=== PATIENT | female | born 1945 | race Caucasian/White ===

== ENCOUNTER 2019-07-30 14:36 | Inpatient (IN) | payer MEDICARE, OTHER ==
[~2019-07-30] VITALS: Ht 162.6 cm; Wt 77.1 kg
[2019-07-30 20:00] VITALS: BP 137/62
[2019-07-30] MEDS ORDERED: Z GUARD REMEDY PASTE 57 GM TUBE TOP PRN (21:45)
[2019-07-30] MEDS ORDERED: MIRALAX 17 GM POWD.PACK PO PRN (22:00)
[2019-07-31] MEDS: HYDROCODONE/APAP 5-325MG TABLET PO PRN ×4 (01:48→23:22)
[2019-07-31 04:00] VITALS: BP 123/58
[2019-07-31 09:10] VITALS: BP 127/53
[2019-07-31] MEDS: ACETAMINOPHEN 325 MG TABLET PO PRN (12:54)
[2019-07-31] MEDS ORDERED: BISACODYL 5 MG TABLET.DR PO PRN (14:00)
[2019-07-31] MEDS ORDERED: ACETAMINOPHEN/CODEINE 300-30 MG TABLET PO PRN (14:00)
[2019-07-31] MEDS ORDERED: DEXTROSE 50% 50 ML DISP.SYRIN IV PRN (14:15)
[2019-07-31 16:01] VITALS: BP 122/55
[2019-07-31] MEDS: BLOOD SUGAR DIAGNOSTIC 1 EACH STRIP VI SCH ×2 (16:30→20:34)
[2019-07-31] MEDS: OLOPATADINE 0.1% OPHT DROP 5 ML BOTTLE EACHEYE SCH (17:34)
[2019-07-31] MEDS: RESTASIS EACHEYE SCH (17:34)
[2019-07-31] MEDS: MIDODRINE HCL 5 MG TABLET PO SCH (17:39)
[2019-07-31] MEDS: LIPASE/PROTEASE/AMYLASE 4200 UNITS CAPSULE.DR PO SCH (17:41)
[2019-07-31 20:25] VITALS: BP 123/60
[2019-07-31] MEDS: DOCUSATE SODIUM 100 MG CAPSULE PO SCH (20:26)
[2019-07-31] MEDS: INSULIN REGULAR, HUMAN 300 UNITS/3 ML VIAL SQ PRN (20:32)
[2019-07-31] MEDS: ENOXAPARIN SODIUM 40 MG/0.4 ML DISP.SYRIN SQ SCH (20:32)
[2019-08-01 04:00] VITALS: BP 128/48
[2019-08-01] MEDS: BLOOD SUGAR DIAGNOSTIC 1 EACH STRIP VI SCH ×4 (06:32→20:55)
[2019-08-01 07:24] LABS: BASOPHILS % (AUTO) 0.5 % (0.0-2.0); EOSINOPHILS # (AUTO) 0.1 K/uL (0.0-0.7); EOSINOPHILS % (AUTO) 1.4 % (0.0-7.0); HEMATOCRIT 28.4 % (31.2-41.9); HEMOGLOBIN 9.8 g/dL (10.9-14.3); LYMPHOCYTES # (AUTO) 1.7 K/uL (20.0-40.0); LYMPHOCYTES % (AUTO) 18.8 % (20.5-51.5); MEAN CORPUSCULAR HEMOGLOBIN 31.8 uug (24.7-32.8); MEAN CORPUSCULAR HGB CONC 35 g/dL (32.3-35.6); MEAN CORPUSCULAR VOLUME 91.9 fL (75.5-95.3); MONOCYTES # (AUTO) 0.8 K/uL (2.0-10.0); NEUTROPHILS # (AUTO) 6.5 K/uL (1.8-8.9); NEUTROPHILS % (AUTO) 70.3 % (38.5-71.5); PLATELET COUNT (AUTO) 313 K/uL (179-408); RED BLOOD CELL COUNT(AUTO) 3.09 MIL/uL (3.63-4.92); WHITE BLOOD COUNT (AUTO) 9.3 K/uL (3.8-11.8)
[2019-08-01 07:36] LABS: CARBON DIOXIDE 24 mmol/L (21-32); CHLORIDE 100 mmol/L (98-107); CREATININE 0.2 mg/dL (0.6-1.3); GLUCOSE 143 mg/dL (74-106); MAGNESIUM 1.8 mg/dL (1.8-2.4); PHOSPHOROUS 2.8 mg/dL (2.5-4.9); POTASSIUM 3.2 mmol/L (3.5-5.1); UREA NITROGEN, BLOOD 8 mg/dL (7-18)
[2019-08-01 07:44] VITALS: BP 128/60
[2019-08-01] MEDS: CELECOXIB 200 MG CAPSULE PO SCH (08:39)
[2019-08-01] MEDS: LIPASE/PROTEASE/AMYLASE 4200 UNITS CAPSULE.DR PO SCH ×3 (08:40→17:51)
[2019-08-01] MEDS: MIDODRINE HCL 5 MG TABLET PO SCH ×3 (08:42→16:40)
[2019-08-01] MEDS: EZETIMIBE 10 MG TABLET PO SCH (08:43)
[2019-08-01] MEDS: RESTASIS EACHEYE SCH ×3 (08:43→16:41)
[2019-08-01] MEDS: OLOPATADINE 0.1% OPHT DROP 5 ML BOTTLE EACHEYE SCH ×2 (08:45→16:42)
[2019-08-01] MEDS: INSULIN REGULAR, HUMAN 300 UNIT/3 ML VIAL SQ PRN ×3 (08:50→16:44)
[2019-08-01] MEDS ORDERED: POTASSIUM CHLORIDE 20 MEQ TAB.PRT.SR PO ONE (12:00)
[2019-08-01] MEDS: HYDROCODONE/APAP 5-325MG TABLET PO PRN ×2 (12:03→20:47)
[2019-08-01 15:03] VITALS: BP 124/70
[2019-08-01] MEDS: ACETAMINOPHEN 325 MG TABLET PO PRN (16:47)
[2019-08-01] MEDS: DOCUSATE SODIUM 100 MG CAPSULE PO SCH (20:47)
[2019-08-01] MEDS: INSULIN REGULAR, HUMAN 300 UNITS/3 ML VIAL SQ PRN (20:51)
[2019-08-01] MEDS: ENOXAPARIN SODIUM 40 MG/0.4 ML DISP.SYRIN SQ SCH (20:52)
[2019-08-01 21:43] VITALS: BP 138/62
[2019-08-02] MEDS: ACETAMINOPHEN 325 MG TABLET PO PRN (04:37)
[2019-08-02 05:00] VITALS: BP 123/57
[2019-08-02] MEDS: BLOOD SUGAR DIAGNOSTIC 1 EACH STRIP VI SCH ×4 (06:31→21:05)
[2019-08-02 07:48] VITALS: BP 119/62
[2019-08-02] MEDS: INSULIN REGULAR, HUMAN 300 UNIT/3 ML VIAL SQ PRN ×2 (08:18→12:07)
[2019-08-02] MEDS: OLOPATADINE 0.1% OPHT DROP 5 ML BOTTLE EACHEYE SCH ×2 (08:19→17:29)
[2019-08-02] MEDS: RESTASIS EACHEYE SCH ×3 (08:19→17:30)
[2019-08-02] MEDS: LIPASE/PROTEASE/AMYLASE 4200 UNITS CAPSULE.DR PO SCH ×3 (08:20→18:24)
[2019-08-02] MEDS: CELECOXIB 200 MG CAPSULE PO SCH (08:20)
[2019-08-02] MEDS: EZETIMIBE 10 MG TABLET PO SCH (08:20)
[2019-08-02] MEDS: MIDODRINE HCL 5 MG TABLET PO SCH ×3 (08:20→17:35)
[2019-08-02] MEDS: HYDROCODONE/APAP 5-325MG TABLET PO PRN ×3 (08:35→22:05)
[2019-08-02 14:39] VITALS: BP 128/69
[2019-08-02 20:22] VITALS: BP 128/60
[2019-08-02] MEDS: DOCUSATE SODIUM 100 MG CAPSULE PO SCH ×2 (20:59→21:00)
[2019-08-02] MEDS: INSULIN REGULAR, HUMAN 300 UNITS/3 ML VIAL SQ PRN (21:09)
[2019-08-02] MEDS: ENOXAPARIN SODIUM 40 MG/0.4 ML DISP.SYRIN SQ SCH (21:10)
[2019-08-03] MEDS: HYDROCODONE/APAP 5-325MG TABLET PO PRN ×5 (02:17→20:45)
[2019-08-03 05:07] VITALS: BP 112/58
[2019-08-03] MEDS: BLOOD SUGAR DIAGNOSTIC 1 EACH STRIP VI SCH ×4 (06:36→20:50)
[2019-08-03] MEDS: LIPASE/PROTEASE/AMYLASE 4200 UNITS CAPSULE.DR PO SCH ×3 (08:03→17:02)
[2019-08-03] MEDS: CELECOXIB 200 MG CAPSULE PO SCH (08:03)
[2019-08-03] MEDS: MIDODRINE HCL 5 MG TABLET PO SCH ×3 (08:05→16:56)
[2019-08-03] MEDS: EZETIMIBE 10 MG TABLET PO SCH (08:05)
[2019-08-03] MEDS: RESTASIS EACHEYE SCH ×3 (08:13→17:06)
[2019-08-03] MEDS: INSULIN REGULAR, HUMAN 300 UNIT/3 ML VIAL SQ PRN ×3 (08:17→17:01)
[2019-08-03 08:21] VITALS: BP 121/64
[2019-08-03] MEDS: PROLENSA 0.07% EACHEYE SCH (08:21)
[2019-08-03] MEDS: OLOPATADINE 0.1% OPHT DROP 5 ML BOTTLE EACHEYE SCH ×2 (08:48→16:54)
[2019-08-03] MEDS ORDERED: hydrOXYzine HCL 25 MG TABLET PO PRN (13:45)
[2019-08-03 16:04] VITALS: BP 119/57
[2019-08-03] MEDS: ACETAMINOPHEN 325 MG TABLET PO PRN (16:55)
[2019-08-03] MEDS: HYDROCORTISONE 0.5% CREAM 28.35 GM TUBE TOP SCH (17:02)
[2019-08-03 20:05] VITALS: BP 109/60
[2019-08-03] MEDS: DOCUSATE SODIUM 100 MG CAPSULE PO SCH (20:44)
[2019-08-03] MEDS: ENOXAPARIN SODIUM 40 MG/0.4 ML DISP.SYRIN SQ SCH (20:46)
[2019-08-03] MEDS: INSULIN REGULAR, HUMAN 300 UNITS/3 ML VIAL SQ PRN (20:47)
[2019-08-04 05:30] VITALS: BP 113/61
[2019-08-04] MEDS: ACETAMINOPHEN 325 MG TABLET PO PRN (05:30)
[2019-08-04] MEDS: BLOOD SUGAR DIAGNOSTIC 1 EACH STRIP VI SCH ×4 (06:42→21:10)
[2019-08-04 08:06] VITALS: BP 130/54
[2019-08-04] MEDS: LIPASE/PROTEASE/AMYLASE 4200 UNITS CAPSULE.DR PO SCH ×3 (08:24→17:28)
[2019-08-04] MEDS: EZETIMIBE 10 MG TABLET PO SCH (08:24)
[2019-08-04] MEDS: CELECOXIB 200 MG CAPSULE PO SCH (08:24)
[2019-08-04] MEDS: HYDROCORTISONE 0.5% CREAM 28.35 GM TUBE TOP SCH ×2 (08:25→17:18)
[2019-08-04] MEDS: MIDODRINE HCL 5 MG TABLET PO SCH ×3 (08:26→17:26)
[2019-08-04] MEDS: OLOPATADINE 0.1% OPHT DROP 5 ML BOTTLE EACHEYE SCH ×2 (08:26→17:16)
[2019-08-04] MEDS: INSULIN REGULAR, HUMAN 300 UNIT/3 ML VIAL SQ PRN ×3 (08:29→17:17)
[2019-08-04] MEDS: RESTASIS EACHEYE SCH ×3 (09:01→17:27)
[2019-08-04] MEDS: PROLENSA 0.07% EACHEYE SCH (09:37)
[2019-08-04] MEDS: HYDROCODONE/APAP 5-325MG TABLET PO PRN ×3 (13:06→22:29)
[2019-08-04 14:22] VITALS: BP 115/58
[2019-08-04 20:00] VITALS: BP 126/58
[2019-08-04] MEDS: DOCUSATE SODIUM 100 MG CAPSULE PO SCH (21:08)
[2019-08-04] MEDS: ENOXAPARIN SODIUM 40 MG/0.4 ML DISP.SYRIN SQ SCH (21:08)
[2019-08-04] MEDS: INSULIN REGULAR, HUMAN 300 UNITS/3 ML VIAL SQ PRN (21:09)
[2019-08-05] MEDS: ACETAMINOPHEN 325 MG TABLET PO PRN (05:18)
[2019-08-05 05:52] VITALS: BP 107/59
[2019-08-05] MEDS: BLOOD SUGAR DIAGNOSTIC 1 EACH STRIP VI SCH ×3 (06:36→16:58)
[2019-08-05 08:00] VITALS: BP 125/60
[2019-08-05] MEDS: MIDODRINE HCL 5 MG TABLET PO SCH ×3 (08:36→17:20)
[2019-08-05] MEDS: LIPASE/PROTEASE/AMYLASE 4200 UNITS CAPSULE.DR PO SCH ×3 (08:36→17:21)
[2019-08-05] MEDS: CELECOXIB 200 MG CAPSULE PO SCH (08:36)
[2019-08-05] MEDS: EZETIMIBE 10 MG TABLET PO SCH (08:37)
[2019-08-05] MEDS: HYDROCORTISONE 0.5% CREAM 28.35 GM TUBE TOP SCH ×2 (08:38→17:21)
[2019-08-05] MEDS: PROLENSA 0.07% EACHEYE SCH (08:39)
[2019-08-05] MEDS: OLOPATADINE 0.1% OPHT DROP 5 ML BOTTLE EACHEYE SCH ×2 (08:39→17:19)
[2019-08-05] MEDS: RESTASIS EACHEYE SCH ×3 (08:42→17:19)
[2019-08-05 16:00] VITALS: BP 118/58
[2019-08-05] MEDS ORDERED: DEXTROSE 50% 50 ML DISP.SYRIN IV PRN ×2 (17:38→17:45)
[2019-08-05] MEDS ORDERED: INSULIN REGULAR, HUMAN 300 UNIT/3 ML VIAL SQ PRN (18:00)
[2019-08-05 20:00] VITALS: BP 108/7
[2019-08-05] MEDS: ENOXAPARIN SODIUM 40 MG/0.4 ML DISP.SYRIN SQ SCH (20:49)
[2019-08-05] MEDS: DOCUSATE SODIUM 100 MG CAPSULE PO SCH (20:50)
[2019-08-05] MEDS: HYDROCODONE/APAP 5-325MG TABLET PO PRN (22:06)
[2019-08-06 05:30] VITALS: BP 120/63
[2019-08-06] MEDS: MIDODRINE HCL 5 MG TABLET PO SCH ×3 (08:34→17:55)
[2019-08-06] MEDS: LIPASE/PROTEASE/AMYLASE 4200 UNITS CAPSULE.DR PO SCH ×3 (08:34→17:59)
[2019-08-06] MEDS: CELECOXIB 200 MG CAPSULE PO SCH (08:34)
[2019-08-06] MEDS: EZETIMIBE 10 MG TABLET PO SCH (08:34)
[2019-08-06] MEDS: HYDROCODONE/APAP 5-325MG TABLET PO PRN ×3 (08:35→20:28)
[2019-08-06] MEDS: RESTASIS EACHEYE SCH ×3 (08:35→17:55)
[2019-08-06] MEDS: PROLENSA 0.07% EACHEYE SCH (08:36)
[2019-08-06] MEDS: OLOPATADINE 0.1% OPHT DROP 5 ML BOTTLE EACHEYE SCH ×2 (08:36→17:55)
[2019-08-06 08:48] VITALS: BP 114/60
[2019-08-06] MEDS: INSULIN REGULAR, HUMAN 300 UNIT/3 ML VIAL SQ PRN (08:50)
[2019-08-06] MEDS: HYDROCORTISONE 0.5% CREAM 28.35 GM TUBE TOP SCH ×2 (08:52→17:55)
[2019-08-06] MEDS: BLOOD SUGAR DIAGNOSTIC 1 EACH STRIP VI SCH (09:32)
[2019-08-06 16:10] VITALS: BP 128/59
[2019-08-06 20:00] VITALS: BP 124/56
[2019-08-06] MEDS: DOCUSATE SODIUM 100 MG CAPSULE PO SCH (20:28)
[2019-08-06] MEDS: ENOXAPARIN SODIUM 40 MG/0.4 ML DISP.SYRIN SQ SCH (20:31)
[2019-08-07 04:56] VITALS: BP 122/59
[2019-08-07] MEDS: HYDROCODONE/APAP 5-325MG TABLET PO PRN ×3 (08:26→20:39)
[2019-08-07] MEDS: HYDROCORTISONE 0.5% CREAM 28.35 GM TUBE TOP SCH ×2 (08:27→17:48)
[2019-08-07] MEDS: EZETIMIBE 10 MG TABLET PO SCH (08:27)
[2019-08-07] MEDS: MIDODRINE HCL 5 MG TABLET PO SCH ×3 (08:28→17:51)
[2019-08-07] MEDS: OLOPATADINE 0.1% OPHT DROP 5 ML BOTTLE EACHEYE SCH ×2 (08:28→17:59)
[2019-08-07] MEDS: LIPASE/PROTEASE/AMYLASE 4200 UNITS CAPSULE.DR PO SCH ×3 (08:29→17:51)
[2019-08-07] MEDS: CELECOXIB 200 MG CAPSULE PO SCH (08:29)
[2019-08-07] MEDS: BLOOD SUGAR DIAGNOSTIC 1 EACH STRIP VI SCH (08:30)
[2019-08-07] MEDS: RESTASIS EACHEYE SCH ×3 (08:38→17:48)
[2019-08-07] MEDS: INSULIN REGULAR, HUMAN 300 UNIT/3 ML VIAL SQ PRN (08:39)
[2019-08-07] MEDS: PROLENSA 0.07% EACHEYE SCH (08:48)
[2019-08-07] MEDS: ACETAMINOPHEN 325 MG TABLET PO PRN (15:28)
[2019-08-07 19:58] VITALS: BP 121/59
[2019-08-07] MEDS: DOCUSATE SODIUM 100 MG CAPSULE PO SCH (20:34)
[2019-08-07] MEDS: ENOXAPARIN SODIUM 40 MG/0.4 ML DISP.SYRIN SQ SCH (20:36)
[2019-08-08 06:03] VITALS: BP 132/64
[2019-08-08] MEDS: HYDROCODONE/APAP 5-325MG TABLET PO PRN ×2 (06:34→11:58)
[2019-08-08] MEDS: BLOOD SUGAR DIAGNOSTIC 1 EACH STRIP VI SCH ×2 (06:35→09:00)
[2019-08-08] MEDS: MIDODRINE HCL 5 MG TABLET PO SCH ×3 (08:29→17:09)
[2019-08-08] MEDS: LIPASE/PROTEASE/AMYLASE 4200 UNITS CAPSULE.DR PO SCH ×3 (08:30→17:10)
[2019-08-08] MEDS: EZETIMIBE 10 MG TABLET PO SCH (08:30)
[2019-08-08] MEDS: RESTASIS EACHEYE SCH ×3 (08:31→17:10)
[2019-08-08] MEDS: CELECOXIB 200 MG CAPSULE PO SCH (08:31)
[2019-08-08] MEDS: OLOPATADINE 0.1% OPHT DROP 5 ML BOTTLE EACHEYE SCH ×2 (08:32→16:57)
[2019-08-08] MEDS: PROLENSA 0.07% EACHEYE SCH (08:33)
[2019-08-08] MEDS: HYDROCORTISONE 0.5% CREAM 28.35 GM TUBE TOP SCH ×2 (08:34→17:09)
[2019-08-08] MEDS: ACETAMINOPHEN 325 MG TABLET PO PRN (17:29)
[2019-08-08 19:56] VITALS: BP 119/53
[2019-08-08] MEDS: DOCUSATE SODIUM 100 MG CAPSULE PO SCH (20:39)
[2019-08-08] MEDS: ENOXAPARIN SODIUM 40 MG/0.4 ML DISP.SYRIN SQ SCH (20:40)
[2019-08-08] MEDS ORDERED: TEMAZEPAM 15 MG CAPSULE PO SCH (21:00)
[2019-08-09] MEDS: ACETAMINOPHEN 325 MG TABLET PO PRN (01:28)
[2019-08-09 05:30] VITALS: BP 128/60
[2019-08-09 07:11] LABS: BASOPHILS # (AUTO) 0.1 K/uL (0.0-8.0); BASOPHILS % (AUTO) 0.9 % (0.0-2.0); EOSINOPHILS # (AUTO) 0.2 K/uL (0.0-0.7); EOSINOPHILS % (AUTO) 2.4 % (0.0-7.0); HEMATOCRIT 33.6 % (31.2-41.9); HEMOGLOBIN 11.1 g/dL (10.9-14.3); LYMPHOCYTES # (AUTO) 1.6 K/uL (20.0-40.0); LYMPHOCYTES % (AUTO) 23.9 % (20.5-51.5); MEAN CORPUSCULAR HEMOGLOBIN 31.7 uug (24.7-32.8); MEAN CORPUSCULAR HGB CONC 33 g/dL (32.3-35.6); MEAN CORPUSCULAR VOLUME 96.2 fL (75.5-95.3); MONOCYTES # (AUTO) 0.6 K/uL (2.0-10.0); MONOCYTES % (AUTO) 9.3 % (0.0-11.0); NEUTROPHILS # (AUTO) 4.2 K/uL (1.8-8.9); NEUTROPHILS % (AUTO) 63.5 % (38.5-71.5); PLATELET COUNT (AUTO) 516 K/uL (179-408); RED BLOOD CELL COUNT(AUTO) 3.49 MIL/uL (3.63-4.92); WHITE BLOOD COUNT (AUTO) 6.6 K/uL (3.8-11.8)
[2019-08-09 07:49] LABS: ALANINE AMINOTRANSFERASE 25 U/L (14-59); ALKALINE PHOSPHATASE 120 U/L (50-136); ASPARTATE AMINOTRANSFERASE 22 U/L (15-37); BILIRUBIN,TOTAL 1.3 mg/dL (0.2-1.0); CARBON DIOXIDE 33 mmol/L (21-32); CHLORIDE 103 mmol/L (98-107); CHOLESTEROL 209 mg/dL (<200); CREATININE 0.5 mg/dL (0.6-1.3); GLUCOSE 186 mg/dL (74-106); HDL CHOLESTEROL 35 mg/dL (40-60); MAGNESIUM 1.9 mg/dL (1.8-2.4); PHOSPHOROUS 3.7 mg/dL (2.5-4.9); POTASSIUM 3.9 mmol/L (3.5-5.1); TOTAL PROTEIN, SERUM 6.7 g/dL (6.4-8.2); TRIGLYCERIDES 179 MG/DL (30-150); UREA NITROGEN, BLOOD 8 mg/dL (7-18)
[2019-08-09] MEDS: HYDROCODONE/APAP 5-325MG TABLET PO PRN ×2 (07:57→12:09)
[2019-08-09] MEDS: CELECOXIB 200 MG CAPSULE PO SCH (08:02)
[2019-08-09] MEDS: MIDODRINE HCL 5 MG TABLET PO SCH ×3 (08:02→16:55)
[2019-08-09] MEDS: LIPASE/PROTEASE/AMYLASE 4200 UNITS CAPSULE.DR PO SCH ×3 (08:02→17:04)
[2019-08-09] MEDS: EZETIMIBE 10 MG TABLET PO SCH (08:02)
[2019-08-09] MEDS: PROLENSA 0.07% EACHEYE SCH (08:03)
[2019-08-09] MEDS: HYDROCORTISONE 0.5% CREAM 28.35 GM TUBE TOP SCH ×2 (08:03→16:53)
[2019-08-09] MEDS: OLOPATADINE 0.1% OPHT DROP 5 ML BOTTLE EACHEYE SCH ×2 (08:03→16:53)
[2019-08-09] MEDS: RESTASIS EACHEYE SCH ×3 (08:04→16:53)
[2019-08-09 08:20] LABS: THYROID STIMULATING HORMONE 1.158 mIU/mL (0.358-3.740)
[2019-08-09 08:28] VITALS: BP 111/60
[2019-08-09] MEDS: BLOOD SUGAR DIAGNOSTIC 1 EACH STRIP VI SCH (08:46)
[2019-08-09 18:34] VITALS: BP 120/55
[2019-08-09 20:15] VITALS: BP 122/69
[2019-08-09] MEDS: ATORVASTATIN 10 MG TABLET PO SCH (21:06)
[2019-08-09] MEDS: DOCUSATE SODIUM 100 MG CAPSULE PO SCH (21:06)
[2019-08-09] MEDS: ENOXAPARIN SODIUM 40 MG/0.4 ML DISP.SYRIN SQ SCH (21:07)
[2019-08-10] MEDS: TEMAZEPAM 15 MG CAPSULE PO SCH (01:19)
[2019-08-10] MEDS: ACETAMINOPHEN 325 MG TABLET PO PRN (01:20)
[2019-08-10 05:15] VITALS: BP 117/66
[2019-08-10 07:45] VITALS: BP 124/76
[2019-08-10] MEDS: LIPASE/PROTEASE/AMYLASE 4200 UNITS CAPSULE.DR PO SCH ×3 (07:48→17:29)
[2019-08-10] MEDS: MIDODRINE HCL 5 MG TABLET PO SCH ×4 (07:48→17:29)
[2019-08-10] MEDS: EZETIMIBE 10 MG TABLET PO SCH (07:49)
[2019-08-10] MEDS: CELECOXIB 200 MG CAPSULE PO SCH (07:49)
[2019-08-10] MEDS: RESTASIS EACHEYE SCH ×3 (07:49→17:28)
[2019-08-10] MEDS: HYDROCORTISONE 0.5% CREAM 28.35 GM TUBE TOP SCH ×2 (07:49→17:29)
[2019-08-10] MEDS: PROLENSA 0.07% EACHEYE SCH (07:50)
[2019-08-10] MEDS: OLOPATADINE 0.1% OPHT DROP 5 ML BOTTLE EACHEYE SCH ×2 (07:50→17:28)
[2019-08-10] MEDS: HYDROCODONE/APAP 5-325MG TABLET PO PRN ×3 (12:37→23:24)
[2019-08-10 18:22] VITALS: BP 143/70
[2019-08-10] MEDS: ATORVASTATIN 10 MG TABLET PO SCH (20:14)
[2019-08-10] MEDS: DOCUSATE SODIUM 100 MG CAPSULE PO SCH (20:14)
[2019-08-10] MEDS: ENOXAPARIN SODIUM 40 MG/0.4 ML DISP.SYRIN SQ SCH (20:15)
[2019-08-10 20:25] VITALS: BP 121/61
[2019-08-11 04:59] VITALS: BP 127/67
[2019-08-11] MEDS: PROLENSA 0.07% EACHEYE SCH (09:11)
[2019-08-11] MEDS: LIPASE/PROTEASE/AMYLASE 4200 UNITS CAPSULE.DR PO SCH ×3 (09:11→17:09)
[2019-08-11] MEDS: OLOPATADINE 0.1% OPHT DROP 5 ML BOTTLE EACHEYE SCH ×2 (09:12→17:08)
[2019-08-11] MEDS: CELECOXIB 200 MG CAPSULE PO SCH (09:12)
[2019-08-11] MEDS: RESTASIS EACHEYE SCH ×3 (09:12→17:08)
[2019-08-11] MEDS: HYDROCORTISONE 0.5% CREAM 28.35 GM TUBE TOP SCH ×2 (09:13→17:09)
[2019-08-11] MEDS: EZETIMIBE 10 MG TABLET PO SCH (09:13)
[2019-08-11 20:08] VITALS: BP 126/54
[2019-08-11] MEDS: DOCUSATE SODIUM 100 MG CAPSULE PO SCH (20:17)
[2019-08-11] MEDS: ATORVASTATIN 10 MG TABLET PO SCH (20:17)
[2019-08-11] MEDS: ENOXAPARIN SODIUM 40 MG/0.4 ML DISP.SYRIN SQ SCH (20:19)
[2019-08-12] MEDS: ACETAMINOPHEN 325 MG TABLET PO PRN (00:38)
[2019-08-12 04:30] VITALS: BP 118/54
[2019-08-12] MEDS: RESTASIS EACHEYE SCH ×3 (08:37→17:35)
[2019-08-12] MEDS: LIPASE/PROTEASE/AMYLASE 4200 UNITS CAPSULE.DR PO SCH ×3 (08:37→17:35)
[2019-08-12] MEDS: EZETIMIBE 10 MG TABLET PO SCH (08:37)
[2019-08-12] MEDS: CELECOXIB 200 MG CAPSULE PO SCH (08:37)
[2019-08-12] MEDS: PROLENSA 0.07% EACHEYE SCH (08:38)
[2019-08-12] MEDS: OLOPATADINE 0.1% OPHT DROP 5 ML BOTTLE EACHEYE SCH ×2 (08:39→17:35)
[2019-08-12] MEDS: HYDROCORTISONE 0.5% CREAM 28.35 GM TUBE TOP SCH ×2 (08:39→17:35)
[2019-08-12] MEDS: HYDROCODONE/APAP 5-325MG TABLET PO PRN ×2 (08:46→21:05)
[2019-08-12 18:51] VITALS: BP 126/62
[2019-08-12 19:53] VITALS: BP 138/53
[2019-08-12] MEDS: DOCUSATE SODIUM 100 MG CAPSULE PO SCH (20:32)
[2019-08-12] MEDS: ATORVASTATIN 10 MG TABLET PO SCH (20:33)
[2019-08-12] MEDS: ENOXAPARIN SODIUM 40 MG/0.4 ML DISP.SYRIN SQ SCH (20:37)
[2019-08-13] MEDS: ACETAMINOPHEN 325 MG TABLET PO PRN ×2 (03:58→10:21)
[2019-08-13 04:40] VITALS: BP 127/62
[2019-08-13 08:00] VITALS: BP 117/55
[2019-08-13] MEDS: CELECOXIB 200 MG CAPSULE PO SCH (08:14)
[2019-08-13] MEDS: LIPASE/PROTEASE/AMYLASE 4200 UNITS CAPSULE.DR PO SCH ×3 (08:14→17:04)
[2019-08-13] MEDS: EZETIMIBE 10 MG TABLET PO SCH (08:14)
[2019-08-13] MEDS: RESTASIS EACHEYE SCH ×3 (08:15→18:00)
[2019-08-13] MEDS: PROLENSA 0.07% EACHEYE SCH (08:15)
[2019-08-13] MEDS: OLOPATADINE 0.1% OPHT DROP 5 ML BOTTLE EACHEYE SCH ×2 (08:15→17:05)
[2019-08-13] MEDS: HYDROCORTISONE 0.5% CREAM 28.35 GM TUBE TOP SCH ×2 (08:16→17:00)
[2019-08-13] MEDS: HYDROCODONE/APAP 5-325MG TABLET PO PRN ×2 (08:19→23:05)
[2019-08-13 18:37] VITALS: BP 118/67
[2019-08-13 20:00] VITALS: BP 125/62
[2019-08-13] MEDS: DOCUSATE SODIUM 100 MG CAPSULE PO SCH (20:18)
[2019-08-13] MEDS: ATORVASTATIN 10 MG TABLET PO SCH (20:18)
[2019-08-13] MEDS: ENOXAPARIN SODIUM 40 MG/0.4 ML DISP.SYRIN SQ SCH (20:21)
[2019-08-14] MEDS: TEMAZEPAM 15 MG CAPSULE PO SCH ×2 (00:15→22:11)
[2019-08-14 06:05] VITALS: BP 123/70
[2019-08-14] MEDS: HYDROCODONE/APAP 5-325MG TABLET PO PRN ×2 (09:17→22:10)
[2019-08-14] MEDS: LIPASE/PROTEASE/AMYLASE 4200 UNITS CAPSULE.DR PO SCH ×3 (09:18→17:31)
[2019-08-14] MEDS: EZETIMIBE 10 MG TABLET PO SCH (09:19)
[2019-08-14] MEDS: PROLENSA 0.07% EACHEYE SCH (09:20)
[2019-08-14] MEDS: HYDROCORTISONE 0.5% CREAM 28.35 GM TUBE TOP SCH ×2 (09:21→17:16)
[2019-08-14] MEDS: CELECOXIB 200 MG CAPSULE PO SCH (09:21)
[2019-08-14] MEDS: OLOPATADINE 0.1% OPHT DROP 5 ML BOTTLE EACHEYE SCH ×2 (09:30→17:17)
[2019-08-14] MEDS: RESTASIS EACHEYE SCH ×3 (09:43→17:28)
[2019-08-14] MEDS: ACETAMINOPHEN 325 MG TABLET PO PRN (13:19)
[2019-08-14 16:23] VITALS: BP 110/62
[2019-08-14 20:00] VITALS: BP 131/62
[2019-08-14] MEDS: ATORVASTATIN 10 MG TABLET PO SCH (21:24)
[2019-08-14] MEDS: DOCUSATE SODIUM 100 MG CAPSULE PO SCH (21:24)
[2019-08-14] MEDS: ENOXAPARIN SODIUM 40 MG/0.4 ML DISP.SYRIN SQ SCH (22:05)
[2019-08-15 05:37] VITALS: BP 131/54
[2019-08-15 08:30] VITALS: BP 136/68
[2019-08-15] MEDS: HYDROCODONE/APAP 5-325MG TABLET PO PRN ×2 (08:51→20:35)
[2019-08-15] MEDS: CELECOXIB 200 MG CAPSULE PO SCH (08:51)
[2019-08-15] MEDS: EZETIMIBE 10 MG TABLET PO SCH (08:51)
[2019-08-15] MEDS: LIPASE/PROTEASE/AMYLASE 4200 UNITS CAPSULE.DR PO SCH ×3 (08:51→17:49)
[2019-08-15] MEDS: RESTASIS EACHEYE SCH ×3 (08:52→17:50)
[2019-08-15] MEDS: OLOPATADINE 0.1% OPHT DROP 5 ML BOTTLE EACHEYE SCH ×2 (08:52→17:49)
[2019-08-15] MEDS: PROLENSA 0.07% EACHEYE SCH (08:52)
[2019-08-15] MEDS: HYDROCORTISONE 0.5% CREAM 28.35 GM TUBE TOP SCH ×2 (08:53→17:00)
[2019-08-15 20:43] VITALS: BP 125/54
[2019-08-15] MEDS: DOCUSATE SODIUM 100 MG CAPSULE PO SCH (20:55)
[2019-08-15] MEDS: ATORVASTATIN 10 MG TABLET PO SCH (20:55)
[2019-08-15] MEDS: ENOXAPARIN SODIUM 40 MG/0.4 ML DISP.SYRIN SQ SCH (20:58)
[2019-08-15] MEDS: TEMAZEPAM 15 MG CAPSULE PO SCH (23:31)
[2019-08-15] MEDS: ACETAMINOPHEN 325 MG TABLET PO PRN (23:40)
[2019-08-16 05:28] VITALS: BP 129/67
[2019-08-16] MEDS: HYDROCODONE/APAP 5-325MG TABLET PO PRN (06:42)
[2019-08-16 08:00] VITALS: BP 125/61
[2019-08-16] MEDS: LIPASE/PROTEASE/AMYLASE 4200 UNITS CAPSULE.DR PO SCH (08:05)
[2019-08-16] MEDS: OLOPATADINE 0.1% OPHT DROP 5 ML BOTTLE EACHEYE SCH (08:06)
[2019-08-16] MEDS: HYDROCORTISONE 0.5% CREAM 28.35 GM TUBE TOP SCH (08:06)
[2019-08-16] MEDS: EZETIMIBE 10 MG TABLET PO SCH (08:06)
[2019-08-16] MEDS: CELECOXIB 200 MG CAPSULE PO SCH (08:06)
[2019-08-16] MEDS: PROLENSA 0.07% EACHEYE SCH (08:22)
[2019-08-16] MEDS: RESTASIS EACHEYE SCH (08:30)
== END 2019-08-16 10:15 | disposition home health service (06) | DRG 560 ==
PROVIDERS: ADMIT Physical Medicine & Rehabilitation Pain Medicine; ATTEND Physical Medicine & Rehabilitation Pain Medicine
DX: M80.052D Age-related osteoporosis with current pathological fracture, left femur, subsequent encounter for fracture with routine healing (principal); K86.1 Other chronic pancreatitis; D62 Acute posthemorrhagic anemia; D68.59 Other primary thrombophilia; R17 Unspecified jaundice; E66.9 Obesity, unspecified; E78.5 Hyperlipidemia, unspecified; I10 Essential (primary) hypertension; K21.9 Gastro-esophageal reflux disease without esophagitis; Z79.810 Long term (current) use of selective estrogen receptor modulators (SERMs); R26.9 Unspecified abnormalities of gait and mobility; Z91.81 History of falling; E11.65 Type 2 diabetes mellitus with hyperglycemia; M19.90 Unspecified osteoarthritis, unspecified site; I95.1 Orthostatic hypotension; E87.6 Hypokalemia; Z68.29 Body mass index [BMI] 29.0-29.9, adult; Z96.659 Presence of unspecified artificial knee joint; R21 Rash and other nonspecific skin eruption
CPT/HCPCS: 36415; 73501; 82652; 83735; 84100; 84443; 85025; J1650; J1815